=== PATIENT | male | born 1965 | race Caucasian/White ===

== ENCOUNTER 2018-03-29 18:21 | Inpatient (IN) | payer OTHER ==
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
[2018-03-29 19:09] LABS: PLATELET COUNT 242 10^3/uL (150-400)
[2018-03-29] MEDS ORDERED: OLANZapine DISINTEGR 10 MG TAB ONE (19:18)
[2018-03-29] MEDS ORDERED: OLANZapine DISINTEGR 10 MG TAB PO ONE (19:22)
[2018-03-29] MEDS ORDERED: OLANZapine 10 MG/2 ML VIAL ONE (20:28)
[2018-03-29] MEDS ORDERED: LORazepam 2 MG/ML INJ ONE (20:28)
[2018-03-29] MEDS ORDERED: LORazepam 2 MG/ML INJ IM ONE (20:37)
[2018-03-29] MEDS ORDERED: OLANZapine 10 MG/2 ML VIAL IM ONE (20:37)
[2018-03-30] MEDS: ZIPRASIDONE MESYLATE 20 MG VIAL IM PRN ×2 (05:24→09:38)
[2018-03-30] MEDS ORDERED: ZIPRASIDONE MESYLATE 20 MG VIAL IM ONE (05:29)
[2018-03-30] MEDS ORDERED: OLANZapine 10 MG/2 ML VIAL ONE (08:51)
[2018-03-30] MEDS ORDERED: HALOPERIDOL LACT 5 MG/ML INJ ONE (08:54)
[2018-03-30] MEDS ORDERED: LORazepam 2 MG/ML INJ ONE (08:57)
[2018-03-30] MEDS ORDERED: LORazepam 2 MG/ML INJ IM ONE (09:38)
[2018-03-30] MEDS ORDERED: HALOPERIDOL 5 MG TAB PO ONE (15:35)
[2018-03-30] MEDS ORDERED: HALOPERIDOL LACT 5 MG/ML INJ IM PRN (15:35)
[2018-03-30] MEDS ORDERED: diphenhydrAMINE 25 MG CAP PO ONE (15:50)
[2018-03-30] MEDS ORDERED: LORazepam 1 MG TAB PO ONE (15:50)
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
--- NOTE | 2018-03-30 16:58 | ASMTTCLDSP ---
TLC Discharge Disposition Disposition Notes: Notes: In consultation with [facility] ED physician, Andrae Flannery MD and on-call psychiatrist, Jimi Braun MD, both concurred that pt appears to meet 27-65 criteria requiring psychiatric hospitalization as pt appears to be gravely disabled due to a mental illness condition. Type of Hold: Answers: M1/72-hour Hold Hold initiated by: Answers: ED Physician Date Signed: 03/30/2018 04:57 PM Electronically Signed By:Tramaine Shipley
--- NOTE | 2018-03-30 17:00 | ASMTLCPROG ---
Notes Note: Notes: Pt does continue to meet criteria for m1 hold. [facility] is concerned pt would have a roommate and there may be an issue. Will review this situation after current admits are completed. In the mean time TLC will seek placement elsewhere. Date Signed: 03/30/2018 04:59 PM Electronically Signed By:Tramaine Shipley
[2018-03-30] MEDS ORDERED: HALOPERIDOL 10 MG TAB PO ONE (19:58)
[2018-03-31] MEDS ORDERED: ZIPRASIDONE MESYLATE 20 MG VIAL IM ONE (07:31)
[2018-03-31] MEDS ORDERED: MAGNESIUM HYDROXIDE 30 ML UDCUP PO PRN (16:18)
[2018-03-31] MEDS ORDERED: MAG HYDROX/AL HYDROX/SIMETH 30 ML UDCUP PO PRN (16:18)
[2018-03-31] MEDS ORDERED: LORazepam 0.5 MG TAB PO PRN (16:18)
[2018-03-31] MEDS ORDERED: ACETAMINOPHEN 325 MG TAB PO PRN (16:18)
[2018-03-31] MEDS ORDERED: OLANZapine DISINTEGR 5 MG TAB PO PRN (16:18)
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
[2018-03-31] MEDS: NICOTINE POLACRILEX 2 MG GUM B PRN (18:37)
[2018-03-31] MEDS ORDERED: OLANZapine DISINTEGR 10 MG TAB PO SCH (21:00)
[2018-03-31] MEDS: MELATONIN 3 MG TAB PO PRN (21:05)
[2018-04-01] MEDS: NICOTINE POLACRILEX 2 MG GUM B PRN ×3 (00:15→15:24)
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
[2018-04-01] MEDS: NICOTINE 14 MG/24 HR PATCH TD SCH (10:31)
--- NOTE | 2018-04-01 11:04 | ASMTCMCOM ---
CM Note CM Note Notes: Pt and CC completed MTP and placed in file. Pt. stated he "can't get rid of this label (Bipolar)". Pt. stated he "likes meditation over medication". Pt. stated he is not interested in meeting with a psychiatrist or taking medications. Pt. stated he likes to have "choices and options". Pt. requested help getting his items from the jail, especially his passport as he wants to travel to [facility]. Pt. stated he does not have outpatient providers. Pt. stated he lives in his van. Pt. stated he currently has a warrant in [facility] for a DUI. Pt. reported spending two years in intermediate, but it's unclear why. Pt. stated he drinks alcohol occasionally and smoke THC "as often as possibly". Pt. denied SI, HI, AVH and paranoia. Pt. reports not liking or wanting to take Zyprexa, as he gained a lot of weight on it in the past. Pt. stated he was at [facility] a couple weeks ago. Date Signed: 04/01/2018 11:04 AM Electronically Signed By:Martha Burch
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
[2018-04-01] MEDS ORDERED: RISPERIDONE 1 MG ODT TAB SL SCH (21:00)
[2018-04-01] MEDS ORDERED: DIVALPROEX ER 500 MG TAB PO SCH (21:00)
[2018-04-02] MEDS: NICOTINE POLACRILEX 2 MG GUM B PRN ×3 (00:26→20:47)
[2018-04-02] MEDS: MELATONIN 3 MG TAB PO PRN (00:26)
--- NOTE | 2018-04-02 08:16 | SOAPPROG ---
SOAP Progress Note Assessment/Plan: Assessment: Bipolar I Disorder, current jayne. Cannabis use disorder, severe, in controlled environment. No improvement noted. (see subjective/objective note). Patient is not safe to discharge at this time as patient continues to exhibit signs of jayne, and express jayne symptoms. Patient requires continued inpatient care because of current jayne, and requires inpatient level of care to stabilize in order to no longer be gravely disabled due to mental illness. Patient could benefit from continued inpatient hospitalization for crisis stabilization, safety, and medication evaluation. Plan: (1) Psychotropic medications: After reviewing options, risks, and benefits patient agrees to: Abilify 15 mg po QD. Consider Emeds if patient becomes risk/ dangerous, and for safety of patient, staff, and other patients. No other medication changes at this time as more time is needed to determine ongoing tolerability and efficacy. Plan is to continue to observe patient for response and side effects from medications, and ongoing monitoring and evaluation. (2) Review with patient informed consent and recommendations for psychotropic medication treatment listed below (3) Labs: no additional labs at this time (4) Therapy: continue milieu and group therapy (5) Further investigation including gathering information from patients relatives and review of past case records to inform treatment plan. (6) Safety/Wellness plan and follow-up outpatient appointments to be established prior to discharge. Next steps are for patient to meet with director career services to plan a safe discharge plan and establish outpatient services for ongoing treatment. (7) Confer with inpatient treatment team regarding treatment plan. (8) Legal status: M1 hold up tomorrow; may require [facility] and [facility] (9) Consider discharge next week if patient is in stable condition, safe, and has a safe discharge plan. (10) Substance abuse interventions: cannabis PSYCHOTROPIC MEDICATION TREATMENT INFORMED CONSENT and RECOMMENDATIONS: Review nature of condition, diagnosis, and prognosis. Review nature and purpose of psychotropic medication treatment. Review type of psychotropic medications being ordered. Review risk and benefits of psychotropic medication treatment. Review probable length of time patient will need to take medications. Review risk and benefits of not undergoing psychotropic medication treatment. Review alternative treatments to psychotropic medications. Review psychotropic medications contraindications, drug-drug interactions, side effects, and importance of reporting any side effects to a psychiatric provider or nurse during inpatient hospitalization, and upon discharge to patients psychiatric outpatient provider, primary care provider, or other health palliative care nurse practitioner. Review importance of asking a nurse, psychiatric provider, or primary care provider any questions or problems concerning the psychotropic medications. Verify patient understands the information that has been provided, and understands, accepts, and agrees to psychotropic medications. Review patients safety plan and importance of patient to report to staff while hospitalized if patient is ever a danger to self/others, or unable to care for self, and upon discharge, the importance for patient to contact [facility] or [facility], or go to the nearest emergency room, if patient is ever a danger to self/others, or unable to care for self. Recommend that upon discharge patient establish medication management treatment with a psychiatric provider, establishes routine therapy appointments, and follow-up with primary care provider. Verify patient understands and agrees to these recommendations. 04/02/18 08:16 Subjective: Following up with patient for evaluation of jayne and safety. Patient reports, "All I need is Melatonin and Sleepy Time Tea, that is what's for me. Me stands for [employer]. The Jamel Clayton and the seble. Did you wrestle, looks like you have cauliflower-ear?" Patient expresses the following psychiatric symptoms agitated and irritable due to being here. Patient reports not taking current medications as prescribed. Patient reports appetite as good, and reports eating all meals. Patient describes getting "several hours" of sleep. Patient reports he was hospitalized at [facility] less than a month ago, and states he does not know why he was hospitalized there. Patient describes being diagnosed with Bipolar Disorder at age 24. Patient states he would be willing to take medications as long as do not cause as much weight gain as he reports gaining 50 lbs when on Zyprexa in the past. Patient states he is not willing to take Depakote or lithium. Patient agrees to Abilify 15 mg po QD, and requests assistance with setting up insurance. Objective: Vital Signs Temp Pulse Resp BP Pulse Ox 36.8 C 74 16 128/76 H 92 04/02/18 06:00 04/02/18 06:00 04/02/18 06:00 04/02/18 06:00 04/02/18 06:00 NURSING REPORT: Consulted with nursing for update on patients progress in treatment. Nurses report patient is not engaged in treatment, is not attending groups, slept 2 hours, expresses the following psychiatric symptoms: irritable and agitated, exhibits the following psychiatric symptoms: tangential, nonsensical, illogical, non-linear, agitated, irritable, decreased need for sleep, hypertalkative, pressured speech, was up most of the night talking; is eating all meals, is not taking medications as prescribed with no report of side effects, with no s/s of EPS/akathisia, and denies SI/HI, denies A/V hallucinations, and denies delusions. CATTLE DRIVER UPDATE: currently working to set-up OP services and assist patient with insurance. MD REPORT FROM WEEKEND: patient is intrusive, agitated and irritable, and may need Emeds at some point. Patient was extremely agitated in ER prior to admission on unit and required several doses of Emeds. SUBSTANCE ABUSE BRIEF INTERVENTION: Brief intervention regarding the risks of cannabis abuse is provided to patient with goal to reduce the risk of harm that could result from the continued use of cannabis, with the general aim to investigate the problem, raise awareness of problem, develop a solution with the patient, recommend a specific change or activity, and motivate the patient toward change. Assess substance abuse behavior and give supportive advice about harm reduction, recommend a reduction in hazardous/at-risk consumption patterns, and facilitate referrals for additional specialized treatment with personal care assistant. Intermediate goal is for the patient to quit use of and attend NA meetings, referral to OP substance abuse treatment. Intervention focus on intermediate goals to allow for more immediate success in the treatment process to keep the patient motivated. Review following with patient : Cannabis use risks: Short-term use: impaired short-term memory, impaired motor coordination, altered judgement, in high doses paranoia and psychosis. Long-term use addiction, diminished life satisfaction and achievement, symptoms of chronic bronchitis, and increased risk of chronic psychosis disorders if predisposition to such disorders. In withdrawal anger, aggression irritability , anxiety and nervousness, decreased appetite or weight loss, restlessness, and sleep difficulties with strange dreams. MSE: The patient is a well-nourished male looking stated chronological age. Attire is appropriate and dress is casual. Grooming status is inappropriate and disheveled. Ambulation is independent. Gait is normal and coordinated. Posture is normal and relaxed. Eye contact is appropriate, and adequate. Motor activity is overactive, rocking in chair, pacing halls; movements are coordinated; with no involuntary movements. Attitude is uncooperative and defensive. Patient appears disinterested and does not relate well to this interviewer. Language production is spontaneous. Rate is pressured. Latency of response is shortened, with irritable, tone, and high volume, and amount is hypertalkative. Articulation is clear. Patient reports mood as good with expansive, and inappropriate and incongruent affect. Patients thought process is non-linear, disorganized, illogical, nonsensical, and tangential. Associations are loose. Patient does not report suicidal/homicidal thoughts, ideas, or plans. Patient denies auditory, visual hallucinations. Patient denies delusions. Patient does not appear to be attending to internal stimuli. Patients attention and concentration are poor. Patient is oriented to person , place. Patients insight is poor. Patients judgment is poor. - Time Spent With Patient Time Spent With Patient: 20 minutes, met with patient individually. - Pending Discharge Pending Discharge Within 24 Hours: No Pending Discharge Within 48 Hours: No ICD10 Worksheet Patient Problems: Problems Problem Status Onset Cannabis use disorder, severe, in controlled environment Acute Bipolar I disorder, current or most recent episode manic, severe Acute Altered mental status Acute
[2018-04-02] MEDS: ARIPiprazole 10 MG TAB PO SCH (08:25)
[2018-04-02] MEDS: NICOTINE 14 MG/24 HR PATCH TD SCH (08:26)
--- NOTE | 2018-04-02 14:56 | ASMTCMCOM ---
CM Note CM Note Notes: Patient continues to have manic symptoms, he slept under3 hours last night, has flight of ideas, rapist speach, is irritable. His MTP is complete. He is taking his medications. He is homeless and reports that he was living in [facility] where his parents live. He would like to stay in [place], he likes the city. He use to be on Medicaid but is not currently. He reports that his SSDI is not effective at this time and he does not know why. He can follow up with [facility] and homeless resources. Need to follow up regarding his SSDI check. Date Signed: 04/02/2018 02:55 PM Electronically Signed By:Meredith Reece
[2018-04-02] MEDS ORDERED: BACITRACIN OINTMENT 1 PACKET TP ONE (21:51)
[2018-04-03] MEDS: MELATONIN 3 MG TAB PO PRN ×2 (01:25→19:58)
--- NOTE | 2018-04-03 07:10 | SOAPPROG ---
SOAP Progress Note Assessment/Plan: Assessment: Bipolar I Disorder, current jayne. Cannabis use disorder, severe, in controlled environment. Slight improvement noted. (see subjective/objective note); notable improvement in medication adherence, improved sleep, less hyperactive. Patient is not safe to discharge at this time as patient continues to exhibit signs of jayne, and express jayne symptoms. Patient requires continued inpatient care because of current jayne, and requires inpatient level of care to stabilize in order to no longer be gravely disabled due to mental illness. Patient could benefit from continued inpatient hospitalization for crisis stabilization, safety, and medication evaluation. Plan: (1) Psychotropic medications: After reviewing options, risks, and benefits patient agrees to continue current medications. DC Ativan as no longer indicated, and patient has history of substance abuse and in preparation for discharge on Monday. No other medication changes at this time as more time is needed to determine ongoing tolerability and efficacy. Plan is to continue to observe patient for response and side effects from medications, and ongoing monitoring and evaluation. (2) Review with patient informed consent and recommendations for psychotropic medication treatment listed below (3) Labs: no additional labs at this time (4) Therapy: continue milieu and group therapy (5) Further investigation including gathering information from patients relatives and review of past case records to inform treatment plan. (6) Safety/Wellness plan and follow-up outpatient appointments to be established prior to discharge. Next steps are for patient to meet with dog day care attendant to plan a safe discharge plan and establish outpatient services for ongoing treatment. (7) Confer with inpatient treatment team regarding treatment plan. (8) Legal status: patient agrees to voluntary hospitalization when M1 expires (9) Consider discharge Monday if patient is in stable condition, safe, and has a safe discharge plan. (10) Substance abuse interventions: cannabis PSYCHOTROPIC MEDICATION TREATMENT INFORMED CONSENT and RECOMMENDATIONS: Review nature of condition, diagnosis, and prognosis. Review nature and purpose of psychotropic medication treatment. Review type of psychotropic medications being ordered. Review risk and benefits of psychotropic medication treatment. Review probable length of time patient will need to take medications. Review risk and benefits of not undergoing psychotropic medication treatment. Review alternative treatments to psychotropic medications. Review psychotropic medications contraindications, drug-drug interactions, side effects, and importance of reporting any side effects to a psychiatric provider or nurse during inpatient hospitalization, and upon discharge to patients psychiatric outpatient provider, primary care provider, or other health director career. Review importance of asking a nurse, psychiatric provider, or primary care provider any questions or problems concerning the psychotropic medications. Verify patient understands the information that has been provided, and understands, accepts, and agrees to psychotropic medications. Review patients safety plan and importance of patient to report to staff while hospitalized if patient is ever a danger to self/others, or unable to care for self, and upon discharge, the importance for patient to contact [facility] or 1, or go to the nearest emergency room, if patient is ever a danger to self/others, or unable to care for self. Recommend that upon discharge patient establish medication management treatment with a psychiatric provider, establishes routine therapy appointments, and follow-up with primary care provider. Verify patient understands and agrees to these recommendations. 04/03/18 07:08 Subjective: Following up with patient for evaluation of jayne and safety. Patient reports, "Feeling a little better, slept better last night with Melatonin. Hey, what did the lion say after eating the quality control analyst, that tasted funny." Patient expresses the following psychiatric symptoms: moderate anxiety. Patient reports taking current medications as prescribed, and states he is tolerating medications with no report of side effects. Patient reports appetite as good, and reports eating all meals. Patient describes getting 5 hours of sleep, and describes his sleep as improved. Patient agrees to continue current medications , and states he would like to only take one if possible. Patient agrees to continue Abilify 15 mg po QD, and agrees to voluntary hospitalization. Objective: Vital Signs Temp Pulse Resp BP Pulse Ox 36.4 C 70 15 124/88 H 95 04/03/18 06:00 04/03/18 06:00 04/03/18 06:00 04/03/18 06:00 04/03/18 06:00 NURSING REPORT: Consulted with nursing for update on patients progress in treatment. Nurses report patient is not engaged in treatment, is not attending groups, slept 4 hours, expresses the following psychiatric symptoms: moderate anxiety; exhibits the following psychiatric symptoms: tangential, anxious; improved sleep; is eating all meals, is taking medications as prescribed with no report of side effects, with no s/s of EPS/akathisia, and denies SI/HI, denies A/V hallucinations, and denies delusions. Nurses report overall improvement with adherence to medications, improved sleep, and less hyperactivity. 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 SUBSTANCE ABUSE BRIEF INTERVENTION: Brief intervention regarding the risks of cannabis abuse is provided to patient with goal to reduce the risk of harm that could result from the continued use of cannabis, with the general aim to investigate the problem, raise awareness of problem, develop a solution with the patient, recommend a specific change or activity, and motivate the patient toward change. Assess substance abuse behavior and give supportive advice about harm reduction, recommend a reduction in hazardous/at-risk consumption patterns, and facilitate referrals for additional specialized treatment with personal care aide. Intermediate goal is for the patient to quit use of cannabis , and attend OP substance abuse group meetings and individual therapy. Intervention focus on intermediate goals to allow for more immediate success in the treatment process to keep the patient motivated. Review following with patient: Cannabis use risks: Short-term use: impaired short-term memory, impaired motor coordination, altered judgement, in high doses paranoia and psychosis. Long-term use addiction, diminished life satisfaction and achievement, symptoms of chronic bronchitis, and increased risk of chronic psychosis disorders if predisposition to such disorders. In withdrawal anger, aggression irritability, anxiety and nervousness, decreased appetite or weight loss, restlessness, and sleep difficulties with strange dreams. MSE: The patient is a well-nourished male looking stated chronological age. Attire is appropriate and dress is casual. Grooming status is appropriate, neat and clean. Ambulation is independent. Gait is normal and coordinated. Posture is normal and relaxed. Eye contact is appropriate, and adequate. Motor activity is appropriate, movements are coordinated; with no involuntary movements. Attitude is cooperative and friendly. Patient appears attentive and relates well to this interviewer. Language production is spontaneous. R/R/ V are normal; articulation is clear. Patient reports mood as good with expansive, and inappropriate and incongruent affect. Patients thought process is tangential. Associations are loose. Patient does not report suicidal/ homicidal thoughts, ideas, or plans. Patient denies auditory, visual hallucinations. Patient denies delusions. Patient does not appear to be attending to internal stimuli. Patients attention and concentration are fair. Patient is oriented to person, place, time. Patients insight is poor. Patients judgment is poor. - Time Spent With Patient Time Spent With Patient: 20 minutes, met with patient individually. - Pending Discharge Pending Discharge Within 24 Hours: No Pending Discharge Within 48 Hours: No ICD10 Worksheet Patient Problems: Problems Problem Status Onset Altered mental status Acute Bipolar I disorder, current or most recent episode manic, severe Acute Cannabis use disorder, severe, in controlled environment Acute
[2018-04-03] MEDS: ARIPiprazole 10 MG TAB PO SCH (08:10)
[2018-04-03] MEDS: NICOTINE 14 MG/24 HR PATCH TD SCH (08:16)
[2018-04-03] MEDS: NICOTINE POLACRILEX 2 MG GUM B PRN ×2 (09:28→20:00)
--- NOTE | 2018-04-04 07:20 | SOAPPROG ---
SOAP Progress Note Assessment/Plan: Assessment: Bipolar I Disorder, current jayne, with mood congruent psychotic features. Cannabis use disorder, severe, in controlled environment. Worsening, no improvement noted. (see subjective/objective note); notable worsening, decreased sleep (2 hours), hyperactivity, tangential, disorganized. Patient could benefit from mood stabilizer. Patient is not safe to discharge at this time as patient continues to exhibit signs of jayne and psychosis, and express jayne symptoms. Patient requires continued inpatient care because of current jayne, and requires inpatient level of care to stabilize in order to no longer be gravely disabled due to mental illness. Patient could benefit from continued inpatient hospitalization for crisis stabilization, safety, and medication evaluation. Plan: (1) Psychotropic medications: After reviewing options, risks, and benefits patient agrees to continue current medications. Start trial of Depakote ER 2, 000 mg po QD for mood instability. No other medication changes at this time as more time is needed to determine ongoing tolerability and efficacy. Plan is to continue to observe patient for response and side effects from medications, and ongoing monitoring and evaluation. (2) Review with patient informed consent and recommendations for psychotropic medication treatment listed below (3) Labs: no additional labs at this time (4) Therapy: continue milieu and group therapy (5) Further investigation including gathering information from patients relatives and review of past case records to inform treatment plan. (6) Safety/Wellness plan and follow-up outpatient appointments to be established prior to discharge. Next steps are for patient to meet with care companion to plan a safe discharge plan and establish outpatient services for ongoing treatment. (7) Confer with inpatient treatment team regarding treatment plan. (8) Legal status: voluntary (9) Consider discharge Monday if patient is in stable condition, safe, and has a safe discharge plan. PSYCHOTROPIC MEDICATION TREATMENT INFORMED CONSENT and RECOMMENDATIONS: Review nature of condition, diagnosis, and prognosis. Review nature and purpose of psychotropic medication treatment. Review type of psychotropic medications being ordered. Review risk and benefits of psychotropic medication treatment. Review probable length of time patient will need to take medications. Review risk and benefits of not undergoing psychotropic medication treatment. Review alternative treatments to psychotropic medications. Review psychotropic medications contraindications, drug-drug interactions, side effects, and importance of reporting any side effects to a psychiatric provider or nurse during inpatient hospitalization, and upon discharge to patients psychiatric outpatient provider, primary care provider, or other health childcare attendant. Review importance of asking a nurse, psychiatric provider, or primary care provider any questions or problems concerning the psychotropic medications. Verify patient understands the information that has been provided, and understands, accepts, and agrees to psychotropic medications. Review patients safety plan and importance of patient to report to staff while hospitalized if patient is ever a danger to self/others, or unable to care for self, and upon discharge, the importance for patient to contact [facility] or [facility], or go to the nearest emergency room, if patient is ever a danger to self/others, or unable to care for self. Recommend that upon discharge patient establish medication management treatment with a psychiatric provider, establishes routine therapy appointments, and follow-up with primary care provider. Verify patient understands and agrees to these recommendations. 04/04/18 07:22 Subjective: Following up with patient for evaluation of jayne and safety. When this LAMP SHADES SUPERVISOR expresses concern regarding patients current jayne signs (lack of sleep, pressured speech, hyperactivity) patient reports, "You're full of shit. Oh, look at the clouds coming over the mountain. Do you know why dogs sandhya their tails, to make ends meet. Do you know the acronym for Q-tip? You know the cut- man, in [place] uses these, and kids go to school without pencils. I need to go to [place] and do some fishing. I know you want me to be stable before traveling to [place]. I am going to be [place], stable." Patient expresses the following psychiatric symptoms: irritable and agitated. Patient reports taking current medications as prescribed, and states he is tolerating medications with no report of side effects. Patient reports appetite as good, and reports eating all meals. Patient describes getting 4 hours of sleep (vs. staff report 2 hours), and patient reports he doesn't feel like he needs any more sleep. Patient agrees to continue Abilify 15 mg po QD, and agrees to voluntary hospitalization. Patient states he will "think about" trial of Depakote ER 2,000 mg. Patient agrees for this LAMP SHADES SUPERVISOR to prescribe Depakote ER 2, 000 mg to start this AM, and states he "will maybe take it." Objective: Vital Signs Temp Pulse Resp BP Pulse Ox 36.4 C 68 16 128/81 H 94 04/04/18 06:00 04/04/18 06:00 04/04/18 06:00 04/04/18 06:00 04/04/18 06:00 NURSING REPORT: Consulted with nursing for update on patients progress in treatment. Nurses report patient is not engaged in treatment, is not attending groups, slept 2 hours, expresses the following psychiatric symptoms: reports feeling irritable and agitated, energetic; exhibits the following psychiatric symptoms: illogical, disorganized, irritable, agitated, tangential, decreased need for sleep, is eating all meals, is taking medications as prescribed with no report of side effects, with no s/s of EPS/akathisia, and denies SI/HI, denies A/V hallucinations, and denies delusions. Night staff reports patient was up most of the night pacing halls and talking to himself. Patient riding stationary bike this morning and talking to himself. UPPER TIER UPDATE: currently working to set-up OP services and assist patient with insurance. MSE: The patient is a well-nourished male looking stated chronological age. Attire is inappropriate and dress is casual, and disheveled appearance. Grooming status is inappropriate, and disheveled. Ambulation is independent. Gait is normal and coordinated. Posture is abnormal and tense. Eye contact is inappropriate and staring. Motor activity is inappropriate and overactive; fidgety; pacing halls; movements are coordinated; with no involuntary movements. Attitude is uncooperative and defensive. Patient appears distractible and does no relate well to this interviewer. Language production is spontaneous. Rate is pressured, latency of response is shortened; volume is high and inappropriate; articulation is clear. Patient reports mood as good with expansive, and inappropriate and incongruent affect. Patients thought process is disorganized, tangential, illogical, and non-linear. Associations are loose. Patient does not report suicidal/homicidal thoughts, ideas, or plans. Patient denies auditory, visual hallucinations. Patient denies delusions. Patient does not appear to be attending to internal stimuli. Patients attention and concentration are poor. Patient is oriented to person, place. Patients insight is poor. Patients judgment is poor. - Time Spent With Patient Time Spent With Patient: 20 minutes, met with patient individually. - Pending Discharge Pending Discharge Within 24 Hours: No Pending Discharge Within 48 Hours: No ICD10 Worksheet Patient Problems: Problems Problem Status Onset Altered mental status Acute Bipolar I disorder, current or most recent episode manic, severe Acute Cannabis use disorder, severe, in controlled environment Acute
[2018-04-04] MEDS: NICOTINE 14 MG/24 HR PATCH TD SCH (08:17)
[2018-04-04] MEDS: DIVALPROEX ER 500 MG TAB PO SCH (08:19)
[2018-04-04] MEDS: PALIPERIDONE 3 MG TAB.ER PO SCH (08:20)
--- NOTE | 2018-04-04 13:54 | ASMTBHDC ---
Notes Note: Notes: CC checked in with patient who denied anxiety, depression, SI, HI, and A/VH. The patient completed breakfast during the interaction and was observed funneling his potatoes between his plate and a cup, as well as using his bagel to tell a joke. 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 yoga.. 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 The patient stated, "CC- credit card, [facility]." The patient seemed to have difficulty concentrating, although cheerful and engaged. Date Signed: 04/04/2018 01:52 PM Electronically Signed By:Michelle Forde
[2018-04-04] MEDS: MELATONIN 3 MG TAB PO PRN (21:33)
[2018-04-05] MEDS: NICOTINE POLACRILEX 2 MG GUM B PRN ×4 (00:35→14:56)
--- NOTE | 2018-04-05 07:18 | SOAPPROG ---
SOAP Progress Note Assessment/Plan: Assessment: Bipolar I Disorder, current jayne, with mood congruent psychotic features. Cannabis use disorder, severe, in controlled environment. Slight improvement noted. (see subjective/objective note). Notable improvement in sleep, less pressured, and less hyperactivity throughout the night. Patient is not safe to discharge at this time as patient continues to exhibit signs of jayne and psychosis, and express jayne symptoms. Patient requires continued inpatient care because of current jayne, and requires inpatient level of care to stabilize in order to no longer be gravely disabled due to mental illness. Patient could benefit from continued inpatient hospitalization for crisis stabilization, safety, and medication evaluation. Patient could benefit from DOCKERY due to history of non-adherence and Depakote level prior to discharge. Target discharge of Monday will allow for both loading doses of Invega Sustenna and Depakote level. Plan: (1) Psychotropic medications: After reviewing options, risks, and benefits patient agrees to continue current medications. No medication changes at this time as more time is needed to determine ongoing tolerability and efficacy. Plan is to continue to observe patient for response and side effects from medications, and ongoing monitoring and evaluation. Patient agrees to Invega Sustenna 234 mg IM tomorrow (Monday) and 156 mg IM on Monday prior to discharge. (2) Review with patient informed consent and recommendations for psychotropic medication treatment listed below (3) Labs: no additional labs at this time (4) Therapy: continue milieu and group therapy (5) Further investigation including gathering information from patients relatives and review of past case records to inform treatment plan. (6) Safety/Wellness plan and follow-up outpatient appointments to be established prior to discharge. Next steps are for patient to meet with customer care voice consultant to plan a safe discharge plan and establish outpatient services for ongoing treatment. (7) Confer with inpatient treatment team regarding treatment plan. (8) Legal status: voluntary (9) Consider discharge Monday if patient is in stable condition, safe, and has a safe discharge plan. (10) Substance abuse interventions: cannabis PSYCHOTROPIC MEDICATION TREATMENT INFORMED CONSENT and RECOMMENDATIONS: Review nature of condition, diagnosis, and prognosis. Review nature and purpose of psychotropic medication treatment. Review type of psychotropic medications being ordered. Review risk and benefits of psychotropic medication treatment. Review probable length of time patient will need to take medications. Review risk and benefits of not undergoing psychotropic medication treatment. Review alternative treatments to psychotropic medications. Review psychotropic medications contraindications, drug-drug interactions, side effects, and importance of reporting any side effects to a psychiatric provider or nurse during inpatient hospitalization, and upon discharge to patients psychiatric outpatient provider, primary care provider, or other health healthcare economics consultant. Review importance of asking a nurse, psychiatric provider, or primary care provider any questions or problems concerning the psychotropic medications. Verify patient understands the information that has been provided, and understands, accepts, and agrees to psychotropic medications. Review patients safety plan and importance of patient to report to staff while hospitalized if patient is ever a danger to self/others, or unable to care for self, and upon discharge, the importance for patient to contact [facility] or [facility], or go to the nearest emergency room, if patient is ever a danger to self/others, or unable to care for self. Recommend that upon discharge patient establish medication management treatment with a psychiatric provider, establishes routine therapy appointments, and follow-up with primary care provider. Verify patient understands and agrees to these recommendations. 04/05/18 07:19 Subjective: Following up with patient for evaluation of jayne and safety. Patient reports "I slept much better last night, almost 6 hours. I have decided to stay in this area after discharge rather than going to [facility] after I discharge. Also , I would prefer the shot for the Invega instead of the pills." Patient expresses the following psychiatric symptoms: moderate anxiety. Patient reports taking current medications as prescribed, and states he is tolerating medications with no report of side effects. Patient agrees to continue current medications, and agrees to Invega Sustenna 234 mg IM first loading dose tomorrow and Invega Sustenna 156 mg IM second loading dose on Monday prior to discharge. Patient agrees to continue oral Invega and Depakote. Patient reports appetite as good, and reports eating all meals. Patient describes getting 6 hours of sleep (vs. staff report 5 hours). Patient agrees to continue voluntary hospitalization. Objective: Vital Signs Temp Pulse Resp BP Pulse Ox 36.5 C 111 H 16 106/71 97 04/05/18 06:00 04/05/18 06:00 04/05/18 06:00 04/05/18 06:00 04/05/18 06:00 NURSING REPORT: Consulted with nursing for update on patients progress in treatment. Nurses report patient is not engaged in treatment, is not attending groups, slept 5 hours, expresses the following psychiatric symptoms: reports feeling severely anxious, energetic; exhibits the following psychiatric symptoms : illogical, disorganized, agitated, tangential, decreased need for sleep, is eating all meals, is taking medications as prescribed with no report of side effects, with no s/s of EPS/akathisia, and denies SI/HI, denies A/V hallucinations, and denies delusions. Night staff reports patient did sleep better last night, and was less talkative and hyperactive throughout the night as compared to Monday night. EMBOSSING TOOL SETTER UPDATE: currently working to set-up OP services and assist patient with insurance. SUBSTANCE ABUSE BRIEF INTERVENTION: Reinforce the importance of abstaining from cannabis use after discharge. Brief intervention regarding the risks of cannabis abuse is provided to patient with goal to reduce the risk of harm that could result from the continued use of cannabis, with the general aim to investigate the problem, raise awareness of problem, develop a solution with the patient, recommend a specific change or activity, and motivate the patient toward change. Assess substance abuse behavior and give supportive advice about harm reduction, recommend a reduction in hazardous/at-risk consumption patterns, and facilitate referrals for additional specialized treatment with career services director. Intermediate goal is for the patient to quit use of and attend outpatient substance abuse treatment meetings, both individual and group. Intervention focus on intermediate goals to allow for more immediate success in the treatment process to keep the patient motivated. Review following with patient: Cannabis use risks: Short-term use: impaired short-term memory, impaired motor coordination, altered judgement, in high doses paranoia and psychosis. Long-term use addiction, diminished life satisfaction and achievement, symptoms of chronic bronchitis, and increased risk of chronic psychosis disorders if predisposition to such disorders. In withdrawal anger, aggression irritability, anxiety and nervousness, decreased appetite or weight loss, restlessness, and sleep difficulties with strange dreams. MSE: The patient is a well-nourished male looking stated chronological age. Attire is inappropriate and dress is casual, and disheveled appearance. Grooming status is inappropriate, and disheveled. Ambulation is independent. Gait is normal and coordinated. Posture is normal and relaxed. Eye contact is appropriate. Motor activity is inappropriate and overactive; fidgety; pacing halls; movements are coordinated; with no involuntary movements. Attitude is cooperative and less defensive today. Patient appears less distractible and relates well to this interviewer. Language production is spontaneous. Rate is pressured, latency of response is shortened; volume is high and inappropriate; articulation is clear. Patient reports mood as good with expansive, and inappropriate and incongruent affect. Patients thought process is tangential. Associations are loose. Patient does not report suicidal/homicidal thoughts, ideas, or plans. Patient denies auditory, visual hallucinations. Patient denies delusions. Patient does not appear to be attending to internal stimuli. Patients attention and concentration are poor. Patient is oriented to person , place, time. Patients insight is poor. Patients judgment is poor. - Time Spent With Patient Time Spent With Patient: 20 minutes, met with patient individually. - Pending Discharge Pending Discharge Within 24 Hours: No Pending Discharge Within 48 Hours: No ICD10 Worksheet Patient Problems: Problems Problem Status Onset Altered mental status Acute Bipolar I disorder, current or most recent episode manic, severe Acute Bipolar I disorder, current or most recent episode manic, with psychotic features Acute
[2018-04-05] MEDS: PALIPERIDONE 3 MG TAB.ER PO SCH (08:23)
[2018-04-05] MEDS: DIVALPROEX ER 500 MG TAB PO SCH (08:23)
[2018-04-05] MEDS: NICOTINE 14 MG/24 HR PATCH TD SCH (08:24)
--- NOTE | 2018-04-05 08:59 | ASMTCMCOM ---
CM Note CM Note Notes: CC checked in with ct. who presented with pressured speech and agitation. He was disorganized and escalated while talking to this worker. Ct. reported that he plans on staying in [place]. 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 Ct. was unable to discuss follow up services in the community as he became too escalated. Date Signed: 04/05/2018 08:58 AM Electronically Signed By:Aretha Iqbal
[2018-04-06] MEDS ORDERED: PALIPERIDONE PALMITATE 234 MG/1.5 ML SYR IM ONE ×2 (06:00→08:15)
--- NOTE | 2018-04-06 07:23 | SOAPPROG ---
SOAP Progress Note Assessment/Plan: Assessment: Bipolar I Disorder, current jayne, with mood congruent psychotic features. Cannabis use disorder, severe, in controlled environment. Slight improvement noted. (see subjective/objective note). Notable improvement in sleep, less pressured, and less hyperactivity throughout the night. Patient is not safe to discharge at this time as patient continues to exhibit signs of jayne and psychosis, and express jayne symptoms. Patient requires continued inpatient care because of current jayne, and requires inpatient level of care to stabilize in order to no longer be gravely disabled due to mental illness. Patient could benefit from continued inpatient hospitalization for crisis stabilization, safety, and medication evaluation. Patient could benefit from DOCKERY due to history of non-adherence and Depakote level prior to discharge. Target discharge of Monday will allow for both loading doses of Invega Sustenna and Depakote level. Plan: (1) Psychotropic medications: After reviewing options, risks, and benefits patient agrees to continue current medications. No medication changes at this time as more time is needed to determine ongoing tolerability and efficacy. Plan is to continue to observe patient for response and side effects from medications, and ongoing monitoring and evaluation. (2) Review with patient informed consent and recommendations for psychotropic medication treatment listed below (3) Labs: no additional labs at this time; VPA level scheduled for Monday prior to discharge (4) Therapy: continue milieu and group therapy (5) Further investigation including gathering information from patients relatives and review of past case records to inform treatment plan. (6) Safety/Wellness plan and follow-up outpatient appointments to be established prior to discharge. Next steps are for patient to meet with child daycare worker to plan a safe discharge plan and establish outpatient services for ongoing treatment. (7) Confer with inpatient treatment team regarding treatment plan. (8) Legal status: voluntary (9) Consider discharge Monday if patient is in stable condition, safe, and has a safe discharge plan. (10) Substance abuse interventions: cannabis PSYCHOTROPIC MEDICATION TREATMENT INFORMED CONSENT and RECOMMENDATIONS: Review nature of condition, diagnosis, and prognosis. Review nature and purpose of psychotropic medication treatment. Review type of psychotropic medications being ordered. Review risk and benefits of psychotropic medication treatment. Review probable length of time patient will need to take medications. Review risk and benefits of not undergoing psychotropic medication treatment. Review alternative treatments to psychotropic medications. Review psychotropic medications contraindications, drug-drug interactions, side effects, and importance of reporting any side effects to a psychiatric provider or nurse during inpatient hospitalization, and upon discharge to patients psychiatric outpatient provider, primary care provider, or other health senior care specialist. Review importance of asking a nurse, psychiatric provider, or primary care provider any questions or problems concerning the psychotropic medications. Verify patient understands the information that has been provided, and understands, accepts, and agrees to psychotropic medications. Review patients safety plan and importance of patient to report to staff while hospitalized if patient is ever a danger to self/others, or unable to care for self, and upon discharge, the importance for patient to contact [facility] or [facility], or go to the nearest emergency room, if patient is ever a danger to self/others, or unable to care for self. Recommend that upon discharge patient establish medication management treatment with a psychiatric provider, establishes routine therapy appointments, and follow-up with primary care provider. Verify patient understands and agrees to these recommendations. 04/06/18 07:22 Subjective: Following up with patient for evaluation of jayne and safety. Patient reports, "Another good night of rest, and feeling much calmer since starting the medications." Patient expresses the following psychiatric symptoms: moderate anxiety. Patient reports taking current medications as prescribed, and states he is tolerating medications with no report of side effects. Patient agrees to continue current medications, and agrees to Invega Sustenna 234 mg IM first loading dose today and Invega Sustenna 156 mg IM second loading dose on Monday prior to discharge. Patient agrees to continue oral Invega and Depakote. Patient reports appetite as good, and reports eating all meals. Patient describes getting 8 hours of sleep. Patient agrees to continue voluntary hospitalization. Objective: Vital Signs Temp Pulse Resp BP Pulse Ox 36.5 C 98 20 117/60 95 04/06/18 06:00 04/06/18 06:00 04/06/18 06:00 04/06/18 06:00 04/06/18 06:00 NURSING REPORT: Consulted with nursing for update on patients progress in treatment. Nurses report patient is engaged in treatment, is attending groups, slept 8 hours, expresses the following psychiatric symptoms: reports feeling moderate anxiety, energetic; exhibits the following psychiatric symptoms: tangential, less agitated; is eating all meals, is taking medications as prescribed with no report of side effects, with no s/s of EPS/akathisia, and denies SI/HI, denies A/V hallucinations, and denies delusions. Night staff reports patient did sleep better last night, and was less talkative and hyperactive throughout the night as compared to Monday night. CURTAIN HEMMER AUTOMATIC UPDATE: currently working to set-up OP services and assist patient with insurance. SUBSTANCE ABUSE BRIEF INTERVENTION: Reinforce the importance of abstaining from cannabis use after discharge. Brief intervention regarding the risks of cannabis abuse is provided to patient with goal to reduce the risk of harm that could result from the continued use of cannabis, with the general aim to investigate the problem, raise awareness of problem, develop a solution with the patient, recommend a specific change or activity, and motivate the patient toward change. Assess substance abuse behavior and give supportive advice about harm reduction, recommend a reduction in hazardous/at-risk consumption patterns, and facilitate referrals for additional specialized treatment with hourly caregiver. Intermediate goal is for the patient to quit use of and attend outpatient substance abuse treatment meetings, both individual and group. Intervention focus on intermediate goals to allow for more immediate success in the treatment process to keep the patient motivated. Review following with patient: Cannabis use risks: Short-term use: impaired short-term memory, impaired motor coordination, altered judgement, in high doses paranoia and psychosis. Long-term use addiction, diminished life satisfaction and achievement, symptoms of chronic bronchitis, and increased risk of chronic psychosis disorders if predisposition to such disorders. In withdrawal anger, aggression irritability, anxiety and nervousness, decreased appetite or weight loss, restlessness, and sleep difficulties with strange dreams. MSE: The patient is a well-nourished male looking stated chronological age. Attire is inappropriate and dress is casual, and disheveled appearance. Grooming status is inappropriate, and disheveled. Ambulation is independent. Gait is normal and coordinated. Posture is normal and relaxed. Eye contact is appropriate. Motor activity is inappropriate and overactive; fidgety; pacing halls; movements are coordinated; with no involuntary movements. Attitude is cooperative and less defensive today. Patient appears less distractible and relates well to this interviewer. Language production is spontaneous. Rate is pressured, latency of response is shortened; volume is high and inappropriate; articulation is clear. Patient reports mood as good with expansive, and inappropriate and incongruent affect. Patients thought process is tangential. Associations are loose. Patient does not report suicidal/homicidal thoughts, ideas, or plans. Patient denies auditory, visual hallucinations. Patient denies delusions. Patient does not appear to be attending to internal stimuli. Patients attention and concentration are poor. Patient is oriented to person , place, time. Patients insight is poor. Patients judgment is poor. Patient has no apparent dysfunction in recent or remote memory noted, and no evidence of gross cognitive dysfunction noted at any point during the interview. - Time Spent With Patient Time Spent With Patient: 20 minutes, met with patient individually. - Pending Discharge Pending Discharge Within 24 Hours: No Pending Discharge Within 48 Hours: No ICD10 Worksheet Patient Problems: Problems Problem Status Onset Altered mental status Acute Bipolar I disorder, current or most recent episode manic, severe Acute Bipolar I disorder, current or most recent episode manic, with psychotic features Acute
[2018-04-06] MEDS: NICOTINE POLACRILEX 2 MG GUM B PRN ×3 (07:41→15:34)
[2018-04-06] MEDS: DIVALPROEX ER 500 MG TAB PO SCH (08:12)
[2018-04-06] MEDS: NICOTINE 14 MG/24 HR PATCH TD SCH (08:13)
[2018-04-06] MEDS: PALIPERIDONE 3 MG TAB.ER PO SCH (08:13)
[2018-04-06] MEDS ORDERED: ARIPIPRAZOLE (ABILIFY MAINTENA) 400 MG VIAL IM ONE (09:00)
--- NOTE | 2018-04-06 11:09 | ASMTCMCOM ---
CM Note CM Note Notes: CC checked in with ct. Ct. presented as very manic with pressured speech and loose associations. He was pretty escalated with this CC. He wanted to know if he was approved for Medicaid and this worker explained that we are looking into it and would hopefully know by Mon. prior to his discharge. Date Signed: 04/06/2018 11:09 AM Electronically Signed By:Aretha Iqbal
[2018-04-07] MEDS: NICOTINE POLACRILEX 2 MG GUM B PRN ×3 (07:06→12:55)
[2018-04-07] MEDS: DIVALPROEX ER 500 MG TAB PO SCH (08:03)
[2018-04-07] MEDS: NICOTINE 14 MG/24 HR PATCH TD SCH (08:03)
[2018-04-07] MEDS: PALIPERIDONE 3 MG TAB.ER PO SCH (08:03)
--- NOTE | 2018-04-07 13:31 | ASMTCMCOM ---
CM Note CM Note Notes: CC checked in with the patient; he reported that he had changed his discharge plans and that he is no longer going to travel to [place]. The patient reported that he is working with a piano case maker, Leander ([phone]), at [facility], who is going to support to him with housing when he is outpatient. The patient requested that CC coordinate care with [facility]. The patient agreed that he is going to stay in [place], [place] and access [facility] services upon discharge. CC left a message for Leander at [facility]. He stated, "I'm not bipolar, I'm polar bye [waving his hand]... "(referring to the provider)...He doesn't listen to me but I bet he would if I punched him in the face.. I'm not a violent person." The patient requested that CC check in about the cost of his prescriptions outpatient because in the past he has not been able to afford his medications and therefore not been adherent. He reported that he needed other parts of medicare or medicaid to pay for the prescriptions. He stated, "Otherwise this is a total waste." Date Signed: 04/07/2018 01:30 PM Electronically Signed By:Michelle Forde
--- NOTE | 2018-04-07 16:53 | SOAPPROG ---
SOAP Progress Note Assessment/Plan: Assessment: 53 yo man with h/o bipolar disorder, non-compliant with treatment for many years. He was placed on M-1 after chasing [employer] officers with stick. Per Florin Jacobo's notes: Bipolar I Disorder, current jayne, with mood congruent psychotic features. Cannabis use disorder, severe, in controlled environment. Slight improvement noted. (see subjective/objective note). Notable improvement in sleep, less pressured, and less hyperactivity throughout the night. Patient is not safe to discharge at this time as patient continues to exhibit signs of jayne and psychosis, and express jayne symptoms. Patient requires continued inpatient care because of current jayne, and requires inpatient level of care to stabilize in order to no longer be gravely disabled due to mental illness. Patient could benefit from continued inpatient hospitalization for crisis stabilization, safety, and medication evaluation. Patient could benefit from DOCKERY due to history of non-adherence and Depakote level prior to discharge. Target discharge of Monday will allow for both loading doses of Invega Sustenna and Depakote level. Plan: 04/07/18 16:47 1. Continue with current plan. Patient is slowly improving. 2. Patient continues to be inappropriate, telling crude jokes to staff & peers. He also has pressured speech and intrusive behavior. 3. Will receive 2nd Invega Sustenna inj on 04/09/18. 4. Will need f/u appts prior to d/c 5. Voluntary Subjective: Patient is still talkative, but less pressured than last weekend. He remains irritable and hostile at times when staff set a limit or remind him of a unit rule. For instance, this AM patient was kicking a stress ball on unit. When the ball bounced off wall and came into the nurse's station, advised patient to use it only in way it was intended. He became irritable and complained. He has been taking his meds as prescribed. Objective: Vital Signs Temp Pulse Resp BP Pulse Ox 36.3 C 77 14 113/59 L 97 04/07/18 07:02 04/07/18 07:02 04/07/18 07:02 04/07/18 07:02 04/07/18 07:02 MSE: Affect: Labile, irritable Mood: "Good" TP: Tangential, Loose TC: Denies any SI/HI Perception: Denies any AH/VH Insight/Judgment: Poor - Time Spent With Patient Time Spent With Patient: 15" - Pending Discharge Pending Discharge Within 24 Hours: No Pending Discharge Within 48 Hours: No ICD10 Worksheet Patient Problems: Problems Problem Status Onset Altered mental status Acute Bipolar I disorder, current or most recent episode manic, severe Acute Bipolar I disorder, current or most recent episode manic, with psychotic features Acute
[2018-04-08] MEDS: PALIPERIDONE 3 MG TAB.ER PO SCH (08:29)
[2018-04-08] MEDS: DIVALPROEX ER 500 MG TAB PO SCH (08:29)
[2018-04-08] MEDS: NICOTINE POLACRILEX 2 MG GUM B PRN ×3 (08:29→13:21)
[2018-04-08] MEDS: NICOTINE 14 MG/24 HR PATCH TD SCH (08:29)
[2018-04-08 13:34] VITALS: BP 109/68
--- NOTE | 2018-04-08 14:46 | ASMTCMCOM ---
CM Note CM Note Notes: According to [facility] staff, including this automobile service writer's observation, the patient seemed increasingly calmer in the milieu. He reported feeling "tired." He seemed decelerated in responsivity. Date Signed: 04/08/2018 02:45 PM Electronically Signed By:Michelle Forde
--- NOTE | 2018-04-08 16:29 | SOAPPROG ---
SOAP Progress Note Assessment/Plan: Assessment: 53 yo man with h/o bipolar disorder, non-compliant with treatment for many years. He was placed on M-1 after chasing [employer] officers with stick. Per Florin Jacobo's notes: Bipolar I Disorder, current jayne, with mood congruent psychotic features. Cannabis use disorder, severe, in controlled environment. Slight improvement noted. (see subjective/objective note). Notable improvement in sleep, less pressured, and less hyperactivity throughout the night. Patient is not safe to discharge at this time as patient continues to exhibit signs of jayne and psychosis, and express jayne symptoms. Patient requires continued inpatient care because of current jayne, and requires inpatient level of care to stabilize in order to no longer be gravely disabled due to mental illness. Patient could benefit from continued inpatient hospitalization for crisis stabilization, safety, and medication evaluation. Patient could benefit from DOCKERY due to history of non-adherence and Depakote level prior to discharge. Target discharge of Monday will allow for both loading doses of Invega Sustenna and Depakote level. Plan: 04/07/18 16:47 1. Continue with current plan. Patient is slowly improving. 2. Patient continues to be inappropriate, telling crude jokes to staff & peers. He also has pressured speech and intrusive behavior. 3. Will receive 2nd Invega Sustenna inj on 04/09/18. 4. Will need f/u appts prior to d/c 5. Voluntary 04/08/18 16:25 1. Patient much calmer, more sedated, slower speech, less racing thoughts, less intrusive, more appropriate behavior (no sexual jokes). 2. Patient slept 10+ hrs last night and this AM. Also took nap in afternoon. 3. 2nd Invega injection this week. 4. D/C likely this week. Subjective: Patient was much calmer, more cooperative and less disruptive to milieu today. He slept for much of morning and was less present in milieu. He had slower speech, less racing thoughts and was less intrusive. He did tell RN "I'm not taking any pills when I leave." He insists he doesn't need medication, "just meditation." Patient has no insight into the nature or severity of his mental illness. He denies any SI/HI. Objective: Vital Signs Temp Pulse Resp BP Pulse Ox 36.3 C 96 12 109/68 96 04/08/18 13:20 04/08/18 13:20 04/08/18 13:20 04/08/18 13:20 04/08/18 13:20 MSE: Affect: Calmer, less elevated, less irritable Mood: "OK" TP: More coherent and logical TC: Denies any SI/HI Insight/Judgment: Improving - Time Spent With Patient Time Spent With Patient: 15" - Pending Discharge Pending Discharge Within 24 Hours: No Pending Discharge Within 48 Hours: No ICD10 Worksheet Patient Problems: Problems Problem Status Onset Altered mental status Acute Bipolar I disorder, current or most recent episode manic, severe Acute Bipolar I disorder, current or most recent episode manic, with psychotic features Acute
[2018-04-09] MEDS ORDERED: PALIPERIDONE PALMITATE 156 MG/ML SYR IM ONE ×2 (06:00→09:00)
[2018-04-09] MEDS: NICOTINE 14 MG/24 HR PATCH TD SCH (08:49)
[2018-04-09] MEDS: PALIPERIDONE 3 MG TAB.ER PO SCH (08:54)
--- NOTE | 2018-04-09 09:37 | BDS ---
REASON FOR ADMISSION: From the ED note dated 03/29/2018, the patient was brought to the emergency department on an M1 hold for abnormal behavior. The patient reportedly ran after the police with a stick. There was some question of whether the patient may have used methamphetamine. The patient was rambling and nonsensical at time of arrival to the ED. The patient reported taking no prescription medications. The patient denied taking any street drugs prior to his presentation at the ED. The patient was admitted involuntarily on an M1 hold due to being gravely disabled due to a mental illness. Patient was admitted for safety, crisis stabilization, and medication evaluation. ADMITTING DIAGNOSES: Bipolar 1 disorder, most recent episode manic, with mood congruent psychotic features; cannabis use disorder, severe, in a controlled environment; homelessness. ADMISSION PHYSICAL EXAM: The patient was seen on 04/01/2018, for an internal medicine consultation. The patient was seen for medical clearance for psychiatric treatment. The patient was medically cleared for inpatient psychiatric hospitalization and treatment. For further details, please refer to the medicine consultation dated 04/01/2018. ADMISSION LABS: CBC from 03/29/2018 within normal limits, except white blood cell elevated at 10.02. Absolute neutrophils were elevated at 6.89. Absolute monocytes were elevated at 0.86. Chemistry from 03/29/2018 within normal limits , except BUN was elevated at 25. Hemoglobin A1c from 03/29/2018, was elevated at 6.1, and estimated average glucose was elevated at 128. Liver function tests from 03/29/2018 within normal limits. Fasting lipid panel from 2017 within normal limits, except cholesterol was elevated at 252. LDL cholesterol calculated was elevated at 190. LDL risk factor was high at 1.2, and non-HDL cholesterol was elevated at 202. LDL/HDL ratio was elevated at 3.79 , and cholesterol/HDL ratio was elevated at 5.04. TSH from 03/29/2018 within normal limits at 4.180. Toxicology screen from 03/30/2018 was non-negative for benzodiazepines and nonnegative for THC, negative for all other substances of abuse and negative for ethyl alcohol. Valproic acid level on 04/08/2018 was 100.3, and this is at the dose of Depakote ER 2000 mg daily. MAJOR PROCEDURES OR TESTS: None. HOSPITAL COURSE: The most prominent symptoms and behaviors while the patient was here were disorganized thought process. The patient was tangential, hyperactive, intrusive, irritable and at times agitated. The patient exhibited decreased need for sleep. Target symptoms during hospitalization, jayne and psychosis. Treatment modalities utilized were milieu and group therapy. Invega 6 mg p.o. daily was started to target mood and psychosis symptoms, was tolerated with no report of side effects and with good response. The patient requested Invega Sustenna as patient reported that he would rather be on the long-acting injectable as opposed to taking an oral medication daily. The patient received the first loading dose of Invega Sustenna 234 mg IM on April 06, day 1, and the patient received second loading dose of Invega Sustenna 156 mg IM on April 09, day 4. The patient tolerated this medication with no report of side effects and with good response. Invega 6 mg p.o. was discontinued as it is no longer indicated for acute stabilization. Depakote ER 2000 mg p.o. daily was started to target mood symptoms, was tolerated with no report of side effects and with good response. Prior to discharge, the patient's valproic acid level was 100.3, and Depakote ER 2000 mg p.o. daily was continued. The patient has improved considerably with no signs of psychiatric symptoms and no psychiatric symptoms expressed at discharge. The patient reports he has improved since admission, states to be in stable condition, feels safe to discharge, and he contracts for safety. Patient's response to treatment was good. There were no adverse or unexpected results of treatment. The patient was safe throughout his stay, active in treatment, attended and engaged in groups, and was appropriate with staff and other patients. The treatment team consensus is the patient is in stable condition and safe to discharge today. The patient prior to discharge met with the entire treatment team, including this BAKER DOUGHNUT, community health worker, psychiatrist, critical care unit manager, and therapist to review patient's discharge plan and treatment plan. CONDITION ON DISCHARGE: Patient is in stable condition and is no longer a danger to self or others, and is not gravely disabled due to mental illness. Patient is no longer in need of inpatient level of care, and can be safely and effectively treated within the community. The patients level of risk at time of discharge is low. MSE: The patient is casually dressed and with good hygiene , and looks stated age. Patient is sitting, posture is upright, and position is relaxed. Patient appears awake, alert, and responds appropriately and reasonably during interview. Patient is engaged, relates well to interviewer, and emotional facial expression is appropriate to situation and changes appropriately with topic. Patient is cooperative, makes comfortable eye contact , and movements are voluntary, deliberate, coordinated, and smooth and even with no inappropriate movements. Patient makes laryngeal sounds effortlessly and shares conversation appropriately; pace of conversation is appropriate, and stream of talking is fluent; articulation is clear and understandable; word choice is effortless and appropriate for education level; completes sentences, occasionally pausing to think; rate and volume are appropriate for interview and setting. Patient reports mood as euthymic. Patients affect is stable with full variable range, congruent with mood, and appropriate to speech and circumstances. Patient has linear and logical thinking, with no loose associations, tangential thought, thought blocking, concrete thinking, or any other signs of formal thought disorder. Patient denies suicidal and homicidal ideation, and denies hallucinations and delusions. Patient appears to be a reliable historian with sound judgement and good insight into current condition. Patient has no apparent dysfunction in recent or remote memory noted , and no evidence of gross cognitive dysfunction noted at any point during the interview. DISCHARGE DIAGNOSES: Bipolar 1 disorder, severe, most recent episode jayne with mood congruent psychotic features; cannabis use disorder, severe. CURRENT MEDICATIONS: Depakote ER 2000 mg p.o. daily. The patient was provided with a prescription for 30 days at time of discharge. Patient to continue Invega Sustenna with next maintenance dose due in 30 days. Patient received the first loading dose of Invega Sustenna 234 mg IM on April 06, day 1, and the patient received second loading dose of Invega Sustenna 156 mg IM on April 09, day 4. Patient to receive the maintenance dose on an outpatient basis. At time of discharge, Depakote prescription was reviewed with the patient to ensure accuracy and patient understanding, and the Invega Sustenna medication was also reviewed with the patient to ensure accuracy and patient understanding. DISPOSITION: Patient left hospital independently and voluntarily with plans to stay in the [place] area. The patient plans to return to his parent's home in [place], [place] and cook pickled meat his van and motorcycle, and patient states he may return back to the [place] area. Patient states staying with his parents is an option for him. FOLLOWUP: marketing program coordinator reports the appropriate outpatient follow-up services have been established and outpatient appointments have been scheduled. The patient received written instructions with times and dates of outpatient follow-up appointments. The following follow-up recommendations were provided to the patient at discharge: Continue psychotropic medications as prescribed and attend appointments as scheduled. Report any side effects to a psychiatric outpatient provider, a primary care provider, or other health career placement specialist. Address any questions or problems concerning the psychotropic medications with a psychiatric outpatient provider, a primary care provider, or other health career placement specialist. Contact [facility] or [facility], or go to the nearest emergency room, if you are ever a danger to yourself/others, or unable to care for yourself. As soon as possible, establish a routine medication management treatment with a psychiatric provider, establish routine therapy appointments, and follow-up with a primary care provider. SUBSTANCE ABUSE BRIEF INTERVENTION: Brief intervention regarding the risks of cannabis abuse is provided to patient with goal to reduce the risk of harm that could result from the continued use of cannabis, with the general aim to investigate the problem, raise awareness of problem, develop a solution with the patient, recommend a specific change or activity, and motivate the patient toward change. Assess substance abuse behavior and give supportive advice about harm reduction, recommend a reduction in hazardous/at-risk consumption patterns, and facilitate referrals for additional specialized treatment with critical care unit manager. Intermediate goal is for the patient to quit use and attend outpatient substance abuse treatment. Intervention focus on intermediate goals to allow for more immediate success in the treatment process to keep the patient motivated. Review following with patient: Cannabis use risks: Short- term use: impaired short-term memory, impaired motor coordination, altered judgement, in high doses paranoia and psychosis. Long-term use addiction, diminished life satisfaction and achievement, symptoms of chronic bronchitis, and increased risk of chronic psychosis disorders if predisposition to such disorders. In withdrawal anger, aggression irritability, anxiety and nervousness, decreased appetite or weight loss, restlessness, and sleep difficulties with strange dreams. LEGAL COURSE: The patient was admitted on an M1 hold for involuntary inpatient psychiatric hospitalization. The patient became voluntary during his stay. Patient discharged today independently and voluntarily. ATTITUDE AT TIME OF DISCHARGE: The patients attitude was positive at time of discharge, and patient reports looking forward to discharging today. The patient reports he feels safe to discharge, is no longer a danger to himself or others, is in stable condition, and contracts for safety. Patient states he will continue medications as prescribed, and establish medication management treatment with an outpatient provider after discharge. Patient reports he understands the information that has been provided to him, and he understands, accepts, and agrees to psychotropic medications. Patient describes internal protective factors as the coping skills he has learned while hospitalized here, and he plans to continue to practice these coping skills after discharge. LABS AND STUDIES: There were no pending labs or studies at time of discharge. ADVANCE DIRECTIVES: There were no advance directives on file, and the patient was full code during this hospitalization. The following psychotropic medication treatment informed consent and recommendations were provided to the patient at time of discharge. Patient reports he understands, accepts, and agrees to the information that has been provided. PSYCHOTROPIC MEDICATION TREATMENT INFORMED CONSENT and RECOMMENDATIONS: Review nature of condition, diagnosis, and prognosis. Review nature and purpose of psychotropic medication treatment. Review type of psychotropic medications being prescribed. Review risk and benefits of psychotropic medication treatment. Review probable length of time will need to take medications. Review risk and benefits of not undergoing psychotropic medication treatment. Review alternative treatments to psychotropic medications. Review psychotropic medications contraindications, side effects, and importance of reporting any side effects to a psychiatric provider, primary care provider, or other health career placement specialist. Review importance of her asking a psychiatric provider or primary care provider any questions or problems concerning the psychotropic medications. Review safety plan and the importance to contact [place] [facility] or [facility] , or go to the nearest emergency room, if ever a danger to yourself/others, or unable to care for yourself. Recommend upon discharge to establish routine medication management treatment with a psychiatric provider, establish routine therapy appointments, and follow-up with a primary care provider. Verify patient understands, accepts, and agrees to the information that has been provided. /[id number]
[2018-04-09] MEDS: DIVALPROEX ER 500 MG TAB PO SCH (10:01)
== END 2018-04-09 11:00 | disposition home or self-care (01) | DRG 885 ==
LOC: EDUNIT# → BBEH 03-31 10:40
PROVIDERS: ADMIT Psychiatry & Neurology Psychiatry; ATTEND Psychiatry & Neurology Psychiatry
DX: F31.2 Bipolar disorder, current episode manic severe with psychotic features (principal); F12.959 Cannabis use, unspecified with psychotic disorder, unspecified; T43.506A Underdosing of unspecified antipsychotics and neuroleptics, initial encounter; E78.5 Hyperlipidemia, unspecified; Z59.0 Homelessness; Z72.0 Tobacco use
CPT/HCPCS: 80305; G0480; J1630; J2060; J2426; J3486